=== PATIENT | male | born 1990 | race Caucasian/White ===

== ENCOUNTER 2023-01-24 12:39 | Emergency (ER) | payer MEDICAID ==
[~2023-01-24] VITALS: Ht 180.3 cm; Wt 75.0 kg
[2023-01-24] MEDS ORDERED: HYDROCODONE/ACETAMINOPHEN 5-325 MG TABLET PO ONE (14:00)
[2023-01-24] MEDS ORDERED: LIDOCAINE 1% 10 ML VIAL PERC ONE (14:00)
[2023-01-24] MEDS ORDERED: PERTUSS(ACELL),DIPH,TET VAC/PF 0.5 ML SYRINGE IM. ONE (14:00)
[2023-01-24 16:15] VITALS: BP 131/84
[2023-01-24] MEDS ORDERED: NEOMYCIN/BACITRACIN/POLYMYXIN B OINTMENT PACKET TP ONE (16:30)
[2023-01-24] MEDS ORDERED: CEPH-558 PO (16:40)
[2023-01-24] MEDS ORDERED: BACI28OI9 TP (16:40)
== END 2023-01-24 16:59 | disposition home or self-care (01) ==
LOC: EMS 12:56
DX: S81.012A Laceration without foreign body, left knee, initial encounter (principal); S40.812A Abrasion of left upper arm, initial encounter; F17.210 Nicotine dependence, cigarettes, uncomplicated; F12.90 Cannabis use, unspecified, uncomplicated; V00.131A Fall from skateboard, initial encounter; Y93.89 Activity, other specified; Y92.89 Other specified places as the place of occurrence of the external cause; Y99.8 Other external cause status
CPT/HCPCS: 99283; 73562; 90715; 90471; 12002; J3490